=== PATIENT | male | born 1960 | race Caucasian/White ===

== ENCOUNTER 2016-10-14 11:09 | Emergency (ER) | payer BC ==
[~2016-10-14] VITALS: Ht 172.7 cm; Wt 72.6 kg
[~2016-10-14 11:09] MED LIST: ALPR0.5T96 PO; ASPI-1063 PO; CARV6.2554 PO; ENAL5TAB85 PO; FLUT1DIS IH; LIP80 PO; PRAS10TA6 PO; PROAIR INHALER; SPIR25TA4 PO; TIOT18CA3
[2016-10-14 11:14] VITALS: BP 129/91; PULSE 68; RESP 16; TEMP 96.9; O2SAT 97
--- NOTE | 2016-10-14 11:25 | NUR ---
Placed in room 3. Placed on quality assurance monitor body, blood pressure machine and pulse oximeter. To gown for exam. Side rails up. Report given to Elif BOOKER.
--- NOTE | 2016-10-14 11:26 | NUR ---
Note andrés in ED - 10/14/16 at 1127 by [email or web address] Placed in room [] . Placed on body painter, blood pressure machine and pulse oximeter. To gown for exam. Side rails up. Report given to [].
[2016-10-14] MEDS ORDERED: ASPIRIN 81 MG TAB.CHEW PO ONE (11:30)
--- NOTE | 2016-10-14 11:30 | NUR ---
Lindsay bowen in ED - 10/14/16 at [email or web address] Banegas at bedside examining patient
--- NOTE | 2016-10-14 11:32 | NUR ---
Pt brought by self, A&O x4, pt c/o left neck pain, with tightness in neck, also complains of left arm pain, denies chest pain at this time, states has Hx of VA, skin pink and warm, cap refill <3, VSS.pt anxious at this time.
[2016-10-14 11:45] LABS: HEMATOCRIT 41.6 % (36-54); HEMOGLOBIN 14.1 g/dL (14.0-18.0); MEAN CORPUSCULAR HEMOGLOBIN 33 pg (27-31); MEAN CORPUSCULAR HGB CONC 34 % (32-36); MEAN CORPUSCULAR VOLUME 96 fL (79.0-98.0); PLATELET COUNT (AUTO) 205 K/uL (130-430); RED BLOOD CELL COUNT(AUTO) 4.32 MIL/uL (4.2-6.2); RED CELL DISTRIBUTION WIDTH 14.1 % (9.0-15.0); WHITE BLOOD COUNT (AUTO) 5.7 K/uL (4.8-10.8)
[2016-10-14 11:54] LABS: CALCIUM 8.9 mg/dL (8.4-11.0); CREATININE 1.16 mg/dL (0.55-1.30)
[2016-10-14 11:59] LABS: ALBUMIN 3.9 g/dL (3.4-4.8); INR 0.9 (0.80-1.20); PROTHROMBIN TIME 10.1 SECS (9.5-12.5); TOTAL BILIRUBIN 0.6 mg/dL (0.0-1.0); TOTAL PROTEIN, SERUM 7.6 g/dL (6.4-8.3)
[2016-10-14 12:06] LABS: ATYPICAL LYMPHOCYTES % 0 % (0-0); BAND % (MANUAL) 0 % (0-6); BASOPHILS % (MANUAL) 0 % (0-2); EOSINOPHILS % (MANUAL) 19 % (0-7); LYMPHOCYTES % (MANUAL) 31 % (20-46); MONOCYTES % (MANUAL) 8 % (0-11)
--- NOTE | 2016-10-14 13:34 | NUR ---
Dr Banegas at bedside examining patient
[2016-10-14 14:12] VITALS: BP 132/67; PULSE 70; RESP 18; TEMP 97.2; O2SAT 98
--- NOTE | 2016-10-14 14:12 | NUR ---
Patient given written and verbal discharge instructions and verbalizes understanding. ER MD discussed with patient the results and treatment provided. Given copies of tests performed in ER. Patient in stable condition. ID arm band removed. IV catheter removed intact and dressing applied, no active bleeding. Patient educated on pain management and to follow up with PMD. Pain Scale 0/10. Opportunity for questions provided and answered.
== END 2016-10-14 14:12 | disposition home or self-care (01) ==
LOC: SED 11:09
DX: M79.602 Pain in left arm (principal); M54.2 Cervicalgia; J45.909 Unspecified asthma, uncomplicated; I25.2 Old myocardial infarction; Z95.0 Presence of cardiac pacemaker; Z79.82 Long term (current) use of aspirin
CPT/HCPCS: 36415; 71010; 80053; 83880; 84484; 85007; 85027; 85610-TC; 85730-TC; 93005; 99285

== ENCOUNTER 2017-05-07 05:45 | Inpatient (IN) | payer BC ==
[~2017-05-07] VITALS: Ht 172.7 cm; Wt 72.6 kg
[2017-05-07 05:45] VITALS: BP_SYST 139
[~2017-05-07 05:45] MED LIST changes: -PROAIR INHALER; -TIOT18CA3
[2017-05-07] MEDS ORDERED: ASPIRIN 325 MG TABLET PO ONE (06:00)
[2017-05-07] MEDS ORDERED: NITROGLYCERIN 0.4 MG TAB.SUBL SL ONE (06:00)
[2017-05-07] MEDS ORDERED: CLOPIDOGREL BISULFATE 75 MG TABLET PO ONE (06:00)
[2017-05-07 06:18] LABS: HEMATOCRIT 37.9 % (36-54); HEMOGLOBIN 12.9 g/dL (14.0-18.0); MEAN CORPUSCULAR HEMOGLOBIN 33 pg (27-31); MEAN CORPUSCULAR HGB CONC 34 % (32-36); MEAN CORPUSCULAR VOLUME 98 fL (79.0-98.0); PLATELET COUNT (AUTO) 199 K/uL (130-430); RED BLOOD CELL COUNT(AUTO) 3.87 MIL/uL (4.2-6.2); RED CELL DISTRIBUTION WIDTH 12.7 % (9.0-15.0); WHITE BLOOD COUNT (AUTO) 3.9 K/uL (4.8-10.8)
[2017-05-07 06:22] LABS: CALCIUM 8.6 mg/dL (8.4-11.0); CREATININE 1.08 mg/dL (0.55-1.30); POTASSIUM 3.9 mmol/L (3.5-5.1)
[2017-05-07 06:26] LABS: INR 0.9 (0.80-1.20)
[2017-05-07 06:27] LABS: ALBUMIN 3.3 g/dL (3.4-4.8); TOTAL BILIRUBIN 0.5 mg/dL (0.0-1.0)
[2017-05-07] MEDS ORDERED: TADA20TA PO (07:31)
[2017-05-07 07:37] LABS: ATYPICAL LYMPHOCYTES % 0 % (0-0); BAND % (MANUAL) 1 % (0-6); BASOPHILS % (MANUAL) 1 % (0-2); EOSINOPHILS % (MANUAL) 22 % (0-7); LYMPHOCYTES % (MANUAL) 30 % (20-46); MONOCYTES % (MANUAL) 9 % (0-11)
[2017-05-07 07:38] LABS: CHOLESTEROL 170 mg/dL (<200); HDL CHOLESTEROL 49 mg/dL (>45); LDL CHOLESTEROL 124 mg/dL (<100); TRIGLYCERIDES 92 mg/dL (30-150)
[2017-05-07] MEDS ORDERED: methylPREDNISolone SOD SUCC/PF 62.5 MG/ML VIAL IVP ONE (08:00)
[2017-05-07] MEDS ORDERED: MAGNESIUM SULFATE 50 ML IV ONE (08:00)
[2017-05-07] MEDS ORDERED: NACL 0.9% 1,000 ML IV ONE (08:00)
[2017-05-07 08:29] LABS: BILIRUBIN,URINE NEGATIVE (NEGATIVE); BLOOD, URINE NEGATIVE (NEGATIVE); CLARITY/URINE CLEAR (CLEAR); COLOR,URINE YELLOW (YELLOW); GLUCOSE,URINE NEGATIVE (NEGATIVE); KETONES,URINE NEGATIVE (NEGATIVE); LEUKOCYTE ESTERASE ,URINE NEGATIVE (NEGATIVE); NITRITE, URINE NEGATIVE (NEGATIVE); PROTEIN URINE NEGATIVE (NEGATIVE); UROBILINOGEN,URINE 0.2 (0.2-1.0)
[2017-05-07 08:37] VITALS: BP_SYST 137
[2017-05-07 11:28] VITALS: BP_SYST 111
[2017-05-07] MEDS ORDERED: ALPRAZolam 0.25 MG TABLET PO SCH (15:00)
[2017-05-07 15:23] VITALS: BP_SYST 102
[2017-05-07] MEDS ORDERED: ALPRAZolam 0.25 MG TABLET PO PRN ×2 (16:45→21:15)
[2017-05-07 20:00] VITALS: BP_SYST 103
[2017-05-07] MEDS: CARVEDILOL 6.25 MG TABLET (COREG) PO SCH (22:31)
[2017-05-07] MEDS: ASPIRIN 81 MG TABLET(ECOTRIN) PO SCH (22:32)
[2017-05-08 00:41] VITALS: BP_SYST 105
[2017-05-08 07:30] VITALS: BP_SYST 132
[2017-05-08] MEDS ORDERED: REGADENOSON 0.4 MG/5 ML SYRINGE IVP ONE (09:00)
[2017-05-08] MEDS ORDERED: NON-FORMULARY MEDICATION (Prasugrel Hydrochloride (Effient) 10 MG) PO SCH (09:00)
[2017-05-08] MEDS ORDERED: ENALAPRIL MALEATE 5 MG TABLET (VASOTEC) PO SCH (09:00)
[2017-05-08] MEDS ORDERED: SPIRONOLACTONE 25 MG TABLET (ALDACTONE) PO SCH (09:00)
[2017-05-08] MEDS ORDERED: ATORVASTATIN 20 MG TABLET PO SCH (09:00)
[2017-05-08] MEDS: ASPIRIN 81 MG TABLET(ECOTRIN) PO SCH (10:32)
[2017-05-08] MEDS: CARVEDILOL 6.25 MG TABLET (COREG) PO SCH (10:32)
[2017-05-08 13:12] VITALS: BP_SYST 101
[2017-05-08 15:55] VITALS: BP_SYST 129
[2017-05-08] MEDS ORDERED: FLU VACC QS 2017-18(36MOS+)/PF 0.5 ML/SYR SYRINGE I.M. PRN (17:00)
[2017-05-08 17:07] VITALS: BP_SYST 129
== END 2017-05-08 17:35 | disposition home or self-care (01) | DRG 313 ==
LOC: SED 05:45 → STU 07:46
PROVIDERS: ADMIT Internal Medicine Hospice and Palliative Medicine; ATTEND Internal Medicine Hospice and Palliative Medicine
DX: R07.89 Other chest pain (principal); I25.2 Old myocardial infarction; I50.22 Chronic systolic (congestive) heart failure; I25.10 Atherosclerotic heart disease of native coronary artery without angina pectoris; E78.5 Hyperlipidemia, unspecified; Z95.1 Presence of aortocoronary bypass graft; Z82.5 Family history of asthma and other chronic lower respiratory diseases; Z82.49 Family history of ischemic heart disease and other diseases of the circulatory system; Z80.9 Family history of malignant neoplasm, unspecified; Z95.5 Presence of coronary angioplasty implant and graft; Z95.810 Presence of automatic (implantable) cardiac defibrillator; Z79.82 Long term (current) use of aspirin; Z79.899 Other long term (current) drug therapy
CPT/HCPCS: 36415; 71010; 80053; 80061; 81003; 82550-TC; 83735-TC; 83880; 84484; 85007; 85027; 85610-TC; 85730-TC; 93005; 93017; 93306; 96374; 96375; 99285; A9500; J2785; J2930; J3475; J7030; Q2037

== ENCOUNTER 2019-03-03 10:45 | Emergency (ER) | payer BC ==
[~2019-03-03] VITALS: Ht 167.6 cm; Wt 78.5 kg
[~2019-03-03 10:45] MED LIST changes: +ALPR0.5T PO; -ALPR0.5T96 PO; -ASPI-1063 PO; +ASPI-1153 PO; +ENAL5TAB77 PO; -ENAL5TAB85 PO; -SPIR25TA4 PO; +SPIR25TA6 PO; +TADA20TA PO
[2019-03-03 10:49] VITALS: BP_SYST 136
[2019-03-03 13:20] VITALS: BP_SYST 131
== END 2019-03-03 13:19 | disposition home or self-care (01) ==
LOC: SED 10:45
DX: B35.3 Tinea pedis (principal); J45.909 Unspecified asthma, uncomplicated; I25.2 Old myocardial infarction; Z95.0 Presence of cardiac pacemaker; Z79.82 Long term (current) use of aspirin; Z79.899 Other long term (current) drug therapy
CPT/HCPCS: 99283

== ENCOUNTER 2019-09-24 18:36 | Inpatient (IN) | payer BC ==
[~2019-09-24] VITALS: Ht 172.7 cm; Wt 73.5 kg
[2019-09-24 18:45] VITALS: BP_SYST 123
--- NOTE | 2019-09-24 18:56 | NUR ---
Patient triaged and placed in waiting room. VSS and patient appears in no acute distress at this time. Accompanied by SELF, awaiting available bed, and MD notified of need for MSE.
--- NOTE | 2019-09-24 20:43 | NUR ---
Patient to ER bed 5 to gown for evaluation. Side rails up. Report given to THIAGO BOOKER.
[2019-09-24 21:00] LABS: BASOPHILS % (AUTO) 0.2 % (0.0-2.0); EOSINOPHILS # (AUTO) 0.9 K/uL (0.0-0.4); EOSINOPHILS % (AUTO) 17.4 % (0.0-4.0); HEMATOCRIT 41.6 % (36-54); LYMPHOCYTES # (AUTO) 1.9 K/uL (1.0-5.5); LYMPHOCYTES % (AUTO) 36.8 % (20.5-51.5); MEAN CORPUSCULAR HEMOGLOBIN 33 pg (27-31); MEAN CORPUSCULAR HGB CONC 34 % (32-36); MEAN CORPUSCULAR VOLUME 98 fL (79.0-98.0); MONOCYTES # (AUTO) 0.4 K/uL (0.0-1.0); MONOCYTES % (AUTO) 8.3 % (1.7-9.3); NEUTROPHILS % (AUTO) 37.3 % (40.0-70.0); PLATELET COUNT (AUTO) 208 K/uL (130-430); RED BLOOD CELL COUNT(AUTO) 4.24 MIL/uL (4.2-6.2); RED CELL DISTRIBUTION WIDTH 13.9 % (9.0-15.0); WHITE BLOOD COUNT (AUTO) 5.3 K/uL (4.8-10.8)
[2019-09-24 21:01] LABS: CALCIUM 8.8 mg/dL (8.4-11.0); CREATININE 0.92 mg/dL (0.55-1.30); POTASSIUM 3.8 mmol/L (3.5-5.1)
--- NOTE | 2019-09-24 21:04 | NUR ---
#18 gauge angiocath placed to L antecubital. Use of asceptic technique. Opsite placed over site. Blood return noted. Flushed with 10 mL of normal saline. No evidence of infiltration noted. Patient tolerated well.
--- NOTE | 2019-09-24 21:04 | NUR ---
Patient AAO x 4 ambulates to ER bed 05 s/p being treated for chest pain and hypertension at [facility] this afternoon. Denies pain at this time. History of pacemaker, cardiac stent x 2 s/p MD in 2012, hyperlipidemia, and hernia. Reports that the plan at [facility] was admission for observation but insurance would have prompted transfer to [facility]. Even chest rise and fall with respirations. Will continue to monitor.
[2019-09-24 21:07] LABS: ALBUMIN 3.7 g/dL (3.4-4.8); TOTAL BILIRUBIN 0.6 mg/dL (0.0-1.0)
--- NOTE | 2019-09-24 21:24 | NUR ---
ER Dr. Banegas at bedside examining patient.
--- NOTE | 2019-09-24 21:28 | NUR ---
Medication reconciliation completed with information verbally provided by pt. Any prior medication reconciliation on file was reviewed and corrected.
--- NOTE | 2019-09-24 21:29 | NUR ---
Pt reports he is full code
[2019-09-24] MEDS ORDERED: ONDANSETRON HCL 4 MG/2 ML VIAL IVP PRN (22:00)
[2019-09-24] MEDS ORDERED: METOCLOPRAMIDE HCL 10 MG/2 ML VIAL IVP PRN (22:00)
--- NOTE | 2019-09-24 22:09 | NUR ---
Patient will be admitted to care of Dr. Crowder. Admitted to Telemetry unit. Will go to room 100B. Belongings list completed. Complete and up to date summary report printed. SBAR report to be given at bedside with opportunity for questions.
--- NOTE | 2019-09-24 22:20 | NUR ---
ADMIT NOTE Received pt from ER to the floor with a diagnosis of NON-STEMI. Admission process initiated. patient oriented to pain management, safety and call light-teach back done.
[2019-09-24 22:32] VITALS: BP_SYST 148
[2019-09-25] MEDS ORDERED: ACETAMINOPHEN 325 MG TABLET PO PRN
[2019-09-25] MEDS ORDERED: *LOVENOX 1MG/KG Q12H/PHARMACY XX PRN
[2019-09-25] MEDS ORDERED: MORPHINE 2 MG/ML INJ. SYRINGE IVP PRN
[2019-09-25] MEDS ORDERED: ALBUTEROL SULFATE 0.083% 2.5 MG/3 ML VIAL.NEB INH PRN
[2019-09-25] MEDS ORDERED: ONDANSETRON HCL 4 MG/2 ML VIAL IVP PRN
[2019-09-25] MEDS ORDERED: MORPHINE 4 MG/ML INJ. SYRINGE IVP PRN
[2019-09-25] MEDS ORDERED: ALPRAZolam 0.25 MG TABLET PO SCH
[2019-09-25] MEDS ORDERED: FLUTICASONE 100 mCg/SALMETEROL 50 mCg DISKUS W.DEV INH SCH
--- NOTE | 2019-09-25 00:12 | NUR ---
Rounds: Patient is resting in bed, no acute distress. Tolerating room air. 100% paced on the monitor. Call light with patient. Will continue monitoring.
[2019-09-25 00:34] VITALS: BP_SYST 148
[2019-09-25] MEDS ORDERED: ENOXAPARIN SODIUM 80 MG/0.8 ML SYRINGE SUBCUT SCH ×2 (01:30→02:00)
[2019-09-25 01:51] VITALS: BP_SYST 133
--- NOTE | 2019-09-25 02:01 | NUR ---
Med pass: Due Lovenox 0.7 MG administered subcutaneously per MD order. Patient was educated regarding indications and side effects and verbalized understanding. Vital signs WNL. Call light is with patient. Will continue to monitor.
[2019-09-25] MEDS ORDERED: ENOXAPARIN SODIUM 80 MG/0.8 ML SYRINGE ONE (02:03)
--- NOTE | 2019-09-25 04:07 | NUR ---
Rounds: Patient is sleeping comfortably in bed. No acute distress. Even and unlabored on room air. Call light with patient. Will continue monitoring.
--- NOTE | 2019-09-25 05:04 | NUR ---
Consultation Paged Reason for consultation: NSTEMI Was consult called: Y Person who was notified: Ashley Consulting Physician: Dr. Perez [employer] Ordering Physician: Dr. Davis
--- NOTE | 2019-09-25 06:37 | NUR ---
Closing note: Patient is awake, no acute distress. No complaint of chest pain. Tolerating room air. IV site to left AC patent and intact. Flu vaccine administered to left deltoid, no adverse reactions noted. All needs met. Safety, fall precautions observed. Hourly rounding performed throughout shift. Will endorse care to dayshift RN.
[2019-09-25 07:14] LABS: BASOPHILS # (AUTO) 0.1 K/uL (0.0-0.2); BASOPHILS % (AUTO) 1.4 % (0.0-2.0); EOSINOPHILS # (AUTO) 0.9 K/uL (0.0-0.4); EOSINOPHILS % (AUTO) 19.5 % (0.0-4.0); HEMATOCRIT 42.5 % (36-54); HEMOGLOBIN 14.2 g/dL (14.0-18.0); LYMPHOCYTES # (AUTO) 1.6 K/uL (1.0-5.5); LYMPHOCYTES % (AUTO) 33.2 % (20.5-51.5); MEAN CORPUSCULAR HEMOGLOBIN 33 pg (27-31); MEAN CORPUSCULAR HGB CONC 33 % (32-36); MEAN CORPUSCULAR VOLUME 98 fL (79.0-98.0); MONOCYTES # (AUTO) 0.5 K/uL (0.0-1.0); MONOCYTES % (AUTO) 9.6 % (1.7-9.3); NEUTROPHILS # (AUTO) 1.7 K/uL (1.8-7.7); NEUTROPHILS % (AUTO) 36.3 % (40.0-70.0); PLATELET COUNT (AUTO) 200 K/uL (130-430); RED BLOOD CELL COUNT(AUTO) 4.33 MIL/uL (4.2-6.2); RED CELL DISTRIBUTION WIDTH 13.8 % (9.0-15.0); WHITE BLOOD COUNT (AUTO) 4.8 K/uL (4.8-10.8)
--- NOTE | 2019-09-25 07:23 | NUR ---
Opening Note received bedside SBAR report from shift engineer RN, patient resting in bed, respirations even and unlabored on room air, patient denies any chest pain or shortness of breath, no acute distress noted, educated patient on use of call light and asked to call for assistance, patient verbalized understanding, call light in reach, educated patient on use of bed alarm for patient safety, patient refusing bed alarm, bed in low and locked position.
[2019-09-25 08:00] VITALS: BP_SYST 143
--- NOTE | 2019-09-25 08:05 | NUR ---
Physician Rounds Dr. Whitman at bedside examining patient, per Dr. Whitman keep patient NPO expect AM medications and hold noon dose of lovenox, Dr. Whitman aware of lovenox dose that was already administered.
[2019-09-25 08:56] LABS: POTASSIUM 4.2 mmol/L (3.5-5.1)
[2019-09-25 08:57] LABS: ALBUMIN 3.4 g/dL (3.4-4.8); CALCIUM 8.7 mg/dL (8.4-11.0); CREATININE 1.02 mg/dL (0.55-1.30); TOTAL BILIRUBIN 1.1 mg/dL (0.0-1.0)
[2019-09-25] MEDS ORDERED: ASPIRIN 81 MG TABLET(ECOTRIN) PO SCH (09:00)
[2019-09-25] MEDS ORDERED: SPIRONOLACTONE 25 MG TABLET (ALDACTONE) PO SCH (09:00)
[2019-09-25] MEDS ORDERED: CARVEDILOL 6.25 MG TABLET (COREG) PO SCH (09:00)
[2019-09-25] MEDS ORDERED: ATORVASTATIN 20 MG TABLET PO SCH (09:00)
[2019-09-25 09:29] VITALS: BP_SYST 143
[2019-09-25] MEDS ORDERED: FLU VACC QS2019-20 36MOS UP/PF 60 MCG/0.5 ML SYRINGE I.M. PRN (10:00)
--- NOTE | 2019-09-25 10:22 | NUR ---
Called Report called report to [facility] , gave SBAR report to Ap.
--- NOTE | 2019-09-25 10:51 | NUR ---
Discharge provided patient with discharge packet and instructions, patient verbalized understanding, IV to left AC patent, clean, dry, and intact, steady gait noted, no acute distress noted, patient denies any chest pain or shortness of breath, report given to [facility] ambulance, all belongings sent with patient, patient transferred to [facility] room 209B via gurney by ambulance on quality assurance monitor chassis.
== END 2019-09-25 10:51 | disposition short-term general hospital (02) | DRG 282 ==
LOC: SED 18:36 → STU 21:59
PROVIDERS: ADMIT Internal Medicine Hospice and Palliative Medicine; ATTEND Internal Medicine Hospice and Palliative Medicine
DX: I21.4 Non-ST elevation (NSTEMI) myocardial infarction (principal); J45.909 Unspecified asthma, uncomplicated; I25.10 Atherosclerotic heart disease of native coronary artery without angina pectoris; E78.5 Hyperlipidemia, unspecified; I10 Essential (primary) hypertension; I25.5 Ischemic cardiomyopathy; I25.2 Old myocardial infarction; Z95.0 Presence of cardiac pacemaker; Z79.899 Other long term (current) drug therapy; Z79.82 Long term (current) use of aspirin
CPT/HCPCS: 36415; 71045; 80053; 80061; 82550-TC; 84484; 85025; 93005; 99285; G0378; J1650